=== PATIENT | female | born 1985 | race Caucasian/White ===

== ENCOUNTER 2022-09-14 08:23 | Day surgery (SDC) | payer OTHER ==
[~2022-09-14] VITALS: Ht 182.9 cm; Wt 152.4 kg
[2022-09-14] MEDS ORDERED: CLONAZEPAM1 MG PO (08:36)
[2022-09-14] MEDS ORDERED: SINGULAIR10 MG PO (08:37)
[2022-09-14] MEDS ORDERED: TRAZODONE50 MG PO (08:37)
[2022-09-14] MEDS ORDERED: TOPIRAMATE50 MG PO (08:37)
[2022-09-14] MEDS ORDERED: AMOXICILLIN500 MG PO (08:37)
[2022-09-14] MEDS ORDERED: SEROQUEL XR400 MG PO (08:38)
[2022-09-14] MEDS ORDERED: ESTRACE2 M1 PO (08:39)
[2022-09-14] MEDS ORDERED: ARIPIPRAZOLE15 MG PO (08:39)
[2022-09-14] MEDS ORDERED: ESCITALOPRAM OX10 MG PO (08:39)
[2022-09-14] MEDS ORDERED: VENTOLIN HFA108 MCG IN (08:43)
[2022-09-14] MEDS ORDERED: BACLOFEN10 MG PO (08:44)
[2022-09-14] MEDS ORDERED: GABAPENTIN100 MG PO (08:44)
[2022-09-14] MEDS ORDERED: BUSPIRONE5 MG PO (08:44)
[2022-09-14] MEDS ORDERED: SUMATRIPTAN SU100 MG PO (08:47)
[2022-09-14 11:14] VITALS: BP 123/81
== END 2022-09-14 11:12 | disposition home or self-care (01) ==
LOC: ORM 08:23
PROVIDERS: ATTEND Physical Medicine & Rehabilitation Pain Medicine
DX: G89.4 Chronic pain syndrome (principal); M54.9 Dorsalgia, unspecified; M79.18 Myalgia, other site; M79.2 Neuralgia and neuritis, unspecified

== ENCOUNTER 2022-11-23 07:25 | Day surgery (SDC) | payer OTHER ==
[~2022-11-23] VITALS: Ht 182.9 cm; Wt 142.9 kg
[~2022-11-23 07:25] MED LIST: AMOXICILLIN500 MG PO; ARIPIPRAZOLE15 MG PO; BACLOFEN10 MG PO; BUSPIRONE5 MG PO; CLONAZEPAM1 MG PO; ESCITALOPRAM OX10 MG PO; ESTRACE2 M1 PO; GABAPENTIN100 MG PO; SEROQUEL XR400 MG PO; SINGULAIR10 MG PO; SUMATRIPTAN SU100 MG PO; TOPIRAMATE50 MG PO; TRAZODONE50 MG PO; VENTOLIN HFA108 MCG IN
[2022-11-23] MEDS ORDERED: KLONOPIN1 MG PO (08:19)
[2022-11-23] MEDS ORDERED: MOTRIN200 MG PO (08:33)
[2022-11-23] MEDS ORDERED: HYDROXYZ HCL10 MG PO (08:34)
[2022-11-23] MEDS ORDERED: MELOXICAM7.5 MG PO (08:35)
[2022-11-23] MEDS ORDERED: METHOCARBAMOL500 MG PO (08:36)
[2022-11-23 10:11] VITALS: BP 39/92
== END 2022-11-23 09:50 | disposition home or self-care (01) ==
LOC: ORM 07:25
PROVIDERS: ATTEND Physical Medicine & Rehabilitation Pain Medicine
DX: M54.89 Other dorsalgia (principal); M54.2 Cervicalgia; Z20.822 Contact with and (suspected) exposure to COVID-19

== ENCOUNTER 2023-01-11 07:00 | Day surgery (SDC) | payer OTHER ==
[~2023-01-11] VITALS: Ht 182.9 cm; Wt 136.1 kg
[~2023-01-11 07:00] MED LIST changes: +HYDROXYZ HCL10 MG PO; +KLONOPIN1 MG PO; +MELOXICAM7.5 MG PO; +METHOCARBAMOL500 MG PO; +MOTRIN200 MG PO
[2023-01-11 11:38] VITALS: BP 126/77
== END 2023-01-11 10:35 | disposition home or self-care (01) ==
LOC: ORM 07:00
DX: G89.4 Chronic pain syndrome (principal); M54.9 Dorsalgia, unspecified; M79.18 Myalgia, other site; M79.2 Neuralgia and neuritis, unspecified